=== PATIENT | male | born 1985 | race Caucasian/White ===

== ENCOUNTER 2017-09-09 10:34 | Emergency (ER) | payer OTHER ==
[~2017-09-09] VITALS: Ht 185.4 cm; Wt 87.2 kg
[2017-09-09 12:58] VITALS: BP 143/86
[2017-09-09] MEDS ORDERED: MOTRIN600 MG PO (13:10)
== END 2017-09-09 13:34 | disposition home or self-care (01) ==
LOC: EME 10:34
DX: S43.101A Unspecified dislocation of right acromioclavicular joint, initial encounter (principal); W00.0XXA Fall on same level due to ice and snow, initial encounter; Y93.23 Activity, snow (alpine) (downhill) skiing, snowboarding, sledding, tobogganing and snow tubing
CPT/HCPCS: 73000; 99281; 99283